=== PATIENT | male | born 1985 | race Caucasian/White ===

== ENCOUNTER 2022-09-21 20:20 | Emergency (ER) | payer BC ==
--- OUTSIDE RECORDS SUMMARY | 2022-09-21 20:23 | XMS REPORT | Continuity of Care Document ---
:1985 Author Organization [facility] t Address [address] [place] [address] [place] [id number] Care Team Providers Name Role Phone TRACY PORTER Attending Clinician Unavailable UMER AUSTIN Attending Clinician Unavailable Problems This patient has no known problems. Allergies, Adverse Reactions, Alerts This patient has no known allergies or adverse reactions. Medications This patient has no known medications. Procedures This patient has no known procedures. Encounters Start End Encounter Admission Attending Care Care Encounter Source Date/Time Date/Time Type Type Clinicians Facility Department ID 2022-09-15 2022-09-15 Emergency ER [facility] [id number] [place] 18:12:00 21:08:00 TRACY [id number] [facility] 2012-02-20 2012-02-20 Emergency ER [facility] [id number] [place] 16:14:00 23:38:00 UMER [id number] [facility] Results This patient has no known results.
[2022-09-21 22:36] LABS: Absolute Lymphocytes (CBC) 2.5 K/uL (0.7-4.9); Hematocrit 43.2 % (39.6-49.0); Lymphocytes % 27.5 % (15.3-44.8); MPV 8.4 fL (7.6-11.3); RBC Red Blood Cell Count 4.81 M/uL (4.33-5.43)
[2022-09-21 22:39] LABS: Protime INR 1.32
[2022-09-21] MEDS ORDERED: METOCLOPRAMIDE 10 MG/2mL INJ ONE (22:46)
[2022-09-21] MEDS ORDERED: NA CHLORIDE 0.9% 1,000 ML ONE (22:47)
[2022-09-21] MEDS ORDERED: KETOROLAC 30 MG/ML INJ ONE (22:47)
[2022-09-21] MEDS ORDERED: PANTOPRAZOLE 40 MG INJ ONE (22:47)
[2022-09-21] MEDS ORDERED: MAGNES/ALUMIN/SIMET 30ML UCUP ONE (22:48)
[2022-09-21] MEDS ORDERED: FAMOTIDINE 20 MG/2 ML VIAL IV ONE (22:48)
[2022-09-21 22:51] LABS: Albumin 4.1 g/dL (3.4-5.0); Bilirubin Direct 0.2 mg/dL (0-0.2); Bilirubin Indirect, Calculated 0.5 mg/dL (0.2-0.8); Bilirubin Total 0.7 mg/dL (0.2-1.0); Potassium 3.9 mEq/L (3.5-5.1); Protein, Total 8.5 g/dL (6.4-8.2)
--- NOTE | 2022-09-22 01:12 | EDPHYS ---
Physician Documentation [facility] Name: Jae Gee Age: 37 yrs Sex: Male : 1985 Arrival Date: 09/21/2022 Time: 20:20 Bed 17 Private MD: ED Physician Kevin Cordova HPI: 09/21 20:26 This 37 yrs old Male presents to ER via Unassigned with complaints of sp4 Difficulty Swallowing, Chest Pain, Neck and Upper Back Pain. 09/22 01:04 37-year-old male no significant past medical history except for asthma presents with sp4 postprandial discomfort in the chest, burning pain after meals, difficulty swallowing solid food, also burning after swallowing liquids. Patient reports he has not had this kind of problem before.. Historical: - Allergies: 09/21 20:36 No Known Allergies; kl - Home Meds: 20:36 None [Active]; kl - PMHx: 20:36 Asthma; kl - PSHx: 20:36 None; kl - Immunization history:: Adult Immunizations not immunized. - Social history:: Smoking status: Reported history of juuling and/or vaping. - Family history:: not pertinent. ROS: 09/22 01:04 Constitutional: Negative for fever, chills, and weight loss, Eyes: Negative for injury, sp4 pain, redness, and discharge, ENT: Negative for injury, pain, and discharge, Neck: Negative for injury, pain, and swelling, Cardiovascular: Negative for chest pain, palpitations, and edema, Respiratory: Negative for shortness of breath, cough, wheezing, and pleuritic chest pain, Abdomen/GI: Negative for abdominal pain, nausea, vomiting, diarrhea, and constipation, positive for chest wall burning after meal, difficulty swallowing solid foods Back: Negative for injury and pain, : Negative for injury, bleeding, discharge, and swelling, MS/Extremity: Negative for injury and deformity, Skin: Negative for injury, rash, and discoloration, Neuro: Negative for headache, weakness, numbness, tingling, and seizure, Psych: Negative for depression, anxiety, Allergy/Immunology: Negative for hives, rash, and allergies Endocrine: Negative for neck swelling, polydipsia, polyuria, polyphagia, and weight changes Hematologic/Lymphatic: Negative for swollen nodes, abnormal bleeding, and unusual bruising Exam: 01:04 Constitutional: This is a well developed, well nourished patient who is awake, alert, sp4 and in no acute distress. Head/Face: Normocephalic, atraumatic. Eyes: Pupils equal round and reactive to light, extra-ocular motions intact. Lids and lashes normal. Conjunctiva and sclera are not injected. Cornea within normal limits. Periorbital areas with no swelling, redness, or edema. ENT: Nares patent. No nasal discharge, no septal abnormalities noted. Tympanic membranes are normal and external auditory canals are clear. Oropharynx with no redness, swelling, or masses, exudates, or evidence of obstruction, uvula midline. Mucous membranes moist. Neck: Trachea midline, no thyromegaly or masses palpated, and no cervical lymphadenopathy. Supple, full range of motion without nuchal rigidity, or vertebral point tenderness. Chest/axilla: Normal chest wall appearance and motion. Nontender with no deformity. No lesions are appreciated. Cardiovascular: Regular rate and rhythm with a normal S1 and S2. No gallops, murmurs, or rubs. Normal PMI, no JVD. No pulse deficits. Respiratory: Lungs have equal breath sounds bilaterally, clear to auscultation and percussion. No rales, rhonchi or wheezes noted. No increased work of breathing, no retractions or nasal flaring. Abdomen/GI: Soft, non-tender, with normal bowel sounds. No distension or tympany. No guarding or rebound. No evidence of tenderness throughout. Back: No spinal tenderness. No costovertebral tenderness. Skin: Warm, dry with normal turgor. Normal color with no rashes, no lesions, and no evidence of cellulitis. MS/ Extremity: Pulses equal, no cyanosis. Neurovascular intact. Full, normal range of motion. Neuro: Awake and alert, GCS 15, oriented to person, place, time, and situation. Cranial nerves II-XII grossly intact. Motor strength 5/5 in all extremities. Sensory grossly intact. Psych: Awake, alert, with orientation to person, place and time. Behavior, mood, and affect are within normal limits Vital Signs: 09/21 20:33 BP 133 / 99; Pulse 81; Resp 18; Temp 97.9(TE); Pulse Ox 99% ; Weight 93.89 kg (R); kl Height 5 ft. 11 in. ; Pain 8/10; 09/22 01:00 BP 110 / 72; Pulse 52; Resp 16; Pulse Ox 99% on R/A; jb4 09/21 20:33 Body Mass Index 28.87 (93.89 kg, 180.34 cm) 09/21 20:33 Pain Scale: Adult kl MDM: 09/21 20:38 Patient medically screened. sp4 09/22 00:36 ED course: PROCEDURE: CT Chest, Abdomen and Pelvis With Intravenous Contrast CLINICAL sp4 INDICATION: The patient is 37 years old and is Male; mid chest pain , esophagitis [facility] MAIN TECHNIQUE: Axial computed tomography images of the chest, abdomen and pelvis with intravenous contrast. Sagittal and coronal reformatted images were created and reviewed. This CT exam was performed using one or more of the following dose reduction techniques: automated exposure control, adjustment of the mA and/or kV according to patient size, and/or use of iterative reconstruction technique. COMPARISON: No relevant prior studies available. FINDINGS: CHEST: LUNGS: Unremarkable. No mass. No consolidation. PLEURAL SPACE: Unremarkable. No significant effusion. No pneumothorax. HEART: Unremarkable. No cardiomegaly. No significant pericardial effusion. No significant coronary artery calcifications. MEDIASTINUM: Minimal soft tissue attenuation in the anterior mediastinum, most consistent with persistent thymus. The esophagus appears diffusely unremarkable by CT appearance. ABDOMEN: LIVER: Wedgelike area of hyperattenuation along the peripheral seventh hepatic segment, with internal focus of more intense hyperattenuation. GALLBLADDER AND BILE DUCTS: Unremarkable. No calcified stones. No ductal dilation. PANCREAS: Unremarkable. No ductal dilation. No mass. SPLEEN: Unremarkable. No splenomegaly. ADRENALS: Unremarkable. No mass. KIDNEYS AND URETERS: Unremarkable. No hydronephrosis. No solid mass. STOMACH AND BOWEL: Unremarkable. No obstruction. No mucosal thickening. PELVIS: APPENDIX: No findings to suggest acute appendicitis. BLADDER: Unremarkable. No mass. REPRODUCTIVE: Unremarkable as visualized. CHEST, ABDOMEN and PELVIS: INTRAPERITONEAL SPACE: Unremarkable. No significant fluid collection. No free air. BONES/JOINTS: Unremarkable. No acute fracture. No dislocation. SOFT TISSUES: Unremarkable. VASCULATURE: Unremarkable. No aortic aneurysm. LYMPH NODES: Unremarkable. No enlarged lymph nodes. IMPRESSION: 1. Wedgelike area of hyperattenuation along the peripheral seventh hepatic segment, with internal focus of more intense hyperattenuation. Recommend further characterization by nonemergent hepatic mass protocol MRI or CT. 2. No acute abnormality of the chest, abdomen, or pelvis. Specifically, the esophagus appears unremarkable by CT. Electronically signed by: Arnold Hedrick MD 09/21/2022 11:34 PM CDT . 01:04 Differential diagnosis: laryngitis, pharyngitis, tonsillitis. Data reviewed: vital sp4 signs, nurses notes, lab test result(s), radiologic studies, CT scan. ED course: By description patient's symptoms consistent with esophagitis. CT reveals no sign of thickened or inflamed esophagus, no sign of perforated esophageal ulcer, no sign of esophageal food bolus retention. Patient will be advised to see pulmonary fellow on outpatient basis for upper endoscopy, Pepcid and omeprazole daily, supplemented with Tums as needed. Also patient advised to consume clear liquid diet for the next 24 hours. Stay away from acidic and caustic foods. . 09/21 20:37 Order name: Basic Metabolic Panel; Complete Time: 00:34 sp4 09/21 20:37 Order name: CBC with Diff; Complete Time: 00:34 sp4 09/21 20:37 Order name: LFT's; Complete Time: 00:34 sp4 09/21 20:37 Order name: PT-INR; Complete Time: 00:34 sp4 09/21 23:37 Order name: CREATININE WHOLE BLOOD; Complete Time: 00:34 EDMS 09/21 20:37 Order name: CT Chest, Abdomen, Pelvis - W/Contrast 4 09/21 20:37 Order name: IV Saline Lock; Complete Time: 22:31 sp4 09/21 20:37 Order name: Labs collected and sent; Complete Time: 22:31 sp4 09/21 20:37 Order name: O2 Per Protocol; Complete Time: 22:20 sp4 09/21 20:37 Order name: O2 Sat Monitoring; Complete Time: 22:20 sp4 Administered Medications: 09/21 23:10 Drug: Famotidine IVP 20 mg Route: IVP; Site: right antecubital; 09/22 01:47 Follow up: Response: No adverse reaction; Marked relief of symptoms 09/21 23:10 Drug: Ketorolac IVP 30 mg Route: IVP; Site: right antecubital; 4 09/22 01:47 Follow up: Response: No adverse reaction; Marked relief of symptoms [facility] 09/21 23:10 Drug: NS 0.9% IV 1000 ml Route: IV; Rate: 1 bolus; Site: right antecubital; 4 09/22 00:15 Follow up: Response: No adverse reaction; Marked relief of symptoms; IV Status: jb4 Completed infusion; IV Intake: 1000ml 09/21 23:11 Drug: Pantoprazole IVP 40 mg Route: IVP; Site: right antecubital; 4 09/22 01:47 Follow up: Response: No adverse reaction; Marked relief of symptoms [facility] 09/21 23:11 Drug: Alum-Mag Hydroxide-Simeth PO Suspension (200 mg-200 mg-20 mg/5 mL) 30 ml Route: jb4 PO; 09/22 01:47 Follow up: Response: No adverse reaction; Marked relief of symptoms [facility] 09/21 23:11 Drug: metoCLOPramide IVP 20 mg {Note: ER physician okayed medication to be administered jb4 in IV bolus .} Route: IVP; Site: right antecubital; 09/22 01:48 Follow up: Response: No adverse reaction; Marked relief of symptoms jb4 Disposition Summary: 09/22/22 01:11 Discharge Ordered Location: Home sp4 Problem: new sp4 Symptoms: have improved sp4 Condition: Stable sp4 Diagnosis - Gastro-esophageal reflux disease with esophagitis sp4 Followup: sp4 - With: Blaise Damian MD - When: 7 - 10 days - Reason: Recheck today's complaints Discharge Instructions: - Discharge Summary Sheet sp4 - Gastroesophageal Reflux Disease, Adult sp4 Prescriptions: - omeprazole 40 mg Oral capsule,delayed release (e.c.) - take 1 capsule by ORAL route daily for 30 days; 30 capsule; Refills: 0, Product sp4 Selection Permitted - Pepcid 20 mg Oral Tablet - take 2 tablet by ORAL route once daily for 30 days; 60 tablet; Refills: 0, sp4 Product Selection Permitted Signatures: Dispatcher [employer] Stephanie Baker RN RN kl Bryson, James, RN RN jbKevin Kruse MD MD sp4
--- NOTE | 2022-09-22 01:12 | ER ---
Nurse's Notes [facility] Name: Jae Gee Age: 37 yrs Sex: Male : 1985 Arrival Date: 09/21/2022 Time: 20:20 Bed 17 Private MD: Diagnosis: Gastro-esophageal reflux disease with esophagitis Presentation: 09/21 20:33 Chief complaint: Patient states: chest pain and difficulty swallowing when trying to kl eat solid foods since Saturday. Coronavirus screen: Vaccine status: Patient reports being unvaccinated. Ebola Screen: Patient negative for fever greater than or equal to 101.5 degrees Fahrenheit, and additional compatible Ebola Virus Disease symptoms. Initial Sepsis Screen: Does the patient meet any 2 criteria? No. Patient's initial sepsis screen is negative. Does the patient have a suspected source of infection? No. Patient's initial sepsis screen is negative. Risk Assessment: Do you want to hurt yourself or someone else? Patient reports no desire to harm self or others. 20:33 Method Of Arrival: Ambulatory kl 20:33 Acuity: MAXWELL 3 kl Triage Assessment: 20:37 General: Appears uncomfortable, Behavior is calm, cooperative. Pain: Complains of pain kl in chest Aggravated by EATING. Cardiovascular: Denies diaphoresis, fatigue, lightheadedness, nausea, palpitations, shortness of breath, syncope, vomiting. Historical: - Allergies: 20:36 No Known Allergies; kl - Home Meds: 20:36 None [Active]; kl - PMHx: 20:36 Asthma; kl - PSHx: 20:36 None; kl - Immunization history:: Adult Immunizations not immunized. - Social history:: Smoking status: Reported history of juuling and/or vaping. - Family history:: not pertinent. Screenin/24 01:00 [facility] ED Fall Risk Assessment (Adult) History of falling in the last 3 months, jb4 including since admission No falls in past 3 months (0 pts) Confusion or Disorientation No (0 pts) Score/Fall Risk Level 0 - 2 = Low Risk Oriented to surroundings, Maintained a safe environment. Abuse screen: Denies threats or abuse. Nutritional screening: No deficits noted. Tuberculosis screening: No symptoms or risk factors identified. Assessment: 09/21 22:30 General: Appears in no apparent distress. comfortable, Behavior is calm, cooperative, jb4 appropriate for age. Pain: Complains of pain in chest and abdomen Pain does not radiate. Pain currently is 8 out of 10 on a pain scale. Neuro: Level of Consciousness is awake, alert, obeys commands, Oriented to person, place, time, situation. Cardiovascular: Patient's skin is warm and dry. Respiratory: Airway is patent Respiratory effort is even, unlabored, Respiratory pattern is regular, symmetrical. GI: Reports upper abdominal pain, nausea. : No signs and/or symptoms were reported regarding the genitourinary system. EENT: No signs and/or symptoms were reported regarding the EENT system. Derm: Skin is intact, Skin is pink, warm \T\ dry. Musculoskeletal: Circulation, motion, and sensation intact. Range of motion: intact in all extremities. 09/22 00:00 Reassessment: Patient appears in no apparent distress at this time. Patient and/or jb4 family updated on plan of care and expected duration. Pain level reassessed. Patient is alert, oriented x 3, equal unlabored respirations, skin warm/dry/pink. 01:46 Reassessment: Patient appears in no apparent distress at this time. Patient and/or jb4 family updated on plan of care and expected duration. Pain level reassessed. Patient is alert, oriented x 3, equal unlabored respirations, skin warm/dry/pink. Vital Signs: 09/21 20:33 BP 133 / 99; Pulse 81; Resp 18; Temp 97.9(TE); Pulse Ox 99% ; Weight 93.89 kg (R); kl Height 5 ft. 11 in. ; Pain 8/10; 09/22 01:00 BP 110 / 72; Pulse 52; Resp 16; Pulse Ox 99% on R/A; jb4 09/21 20:33 Body Mass Index 28.87 (93.89 kg, 180.34 cm) 09/21 20:33 Pain Scale: Adult ED Course: 09/21 20:24 Patient arrived in ED. jj6 20:26 Kevin Cordova MD is Attending Physician. sp4 20:36 Triage completed. kl 20:39 Radiology exam delayed due to lab results not completed at this time. (BUN/Creatinine) jg10 IV insertion attempt and/or patient not having appropriate IV at this time. 22:31 PT-INR Sent. jb4 22:31 LFT's Sent. jb4 22:31 CBC with Diff Sent. jb4 22:31 Basic Metabolic Panel Sent. jb4 22:58 CT Chest, Abdomen, Pelvis - W/Contrast In Process Unspecified. EDMS 22:58 Geremias Benedict, RN is Primary Nurse. 4 09/22 01:00 No provider procedures requiring assistance completed. IV discontinued, intact, jb4 bleeding controlled, No redness/swelling at site. Pressure dressing applied. Patient maintains SpO2 saturation greater than 95% on room air. 01:00 Patient has correct armband on for positive identification. Client placed on continuous jb4 cardiac and pulse oximetry monitoring. NIBP monitoring applied. 01:11 Blaise Damian MD is Referral Physician. sp4 Administered Medications: 09/21 23:10 Drug: Famotidine IVP 20 mg Route: IVP; Site: right antecubital; [facility] 09/22 01:47 Follow up: Response: No adverse reaction; Marked relief of symptoms [facility] 09/21 23:10 Drug: Ketorolac IVP 30 mg Route: IVP; Site: right antecubital; [facility] 09/22 01:47 Follow up: Response: No adverse reaction; Marked relief of symptoms [facility] 09/21 23:10 Drug: NS 0.9% IV 1000 ml Route: IV; Rate: 1 bolus; Site: right antecubital; [facility] 09/22 00:15 Follow up: Response: No adverse reaction; Marked relief of symptoms; IV Status: jb4 Completed infusion; IV Intake: 1000ml 09/21 23:11 Drug: Pantoprazole IVP 40 mg Route: IVP; Site: right antecubital; [facility] 09/22 01:47 Follow up: Response: No adverse reaction; Marked relief of symptoms [facility] 09/21 23:11 Drug: Alum-Mag Hydroxide-Simeth PO Suspension (200 mg-200 mg-20 mg/5 mL) 30 ml Route: jb4 PO; 09/22 01:47 Follow up: Response: No adverse reaction; Marked relief of symptoms [facility] 09/21 23:11 Drug: metoCLOPramide IVP 20 mg {Note: ER physician okayed medication to be administered jb4 in IV bolus .} Route: IVP; Site: right antecubital; 09/22 01:48 Follow up: Response: No adverse reaction; Marked relief of symptoms jb4 Intake: 00:15 IV: 1000ml; Total: 1000ml. jb4 Outcome: 01:11 Discharge ordered by . sp4 01:47 Discharged to home ambulatory, with family. jb4 01:47 Condition: stable 01:47 Discharge instructions given to patient, family, Instructed on discharge instructions, follow up and referral plans. medication usage, Demonstrated understanding of instructions, follow-up care, medications, Prescriptions given X 2. 01:48 Patient left the ED. jb4 Signatures: Dispatcher [employer] EDMS Stephanie Jameson RN RN Geremias Mars RN RN jb4 Ria Sanford6 Jayne Ness0 Kevin Cordova MD MD sp4
[2022-09-22 01:53] VITALS: TEMP 97.9; O2SAT 99
[2022-09-22 01:55] VITALS: BP 110/72
--- NOTE | 2022-09-22 21:44 | RAD REPORT ---
EXAM DESCRIPTION: CT - Chest Abdomen Pelvis W Cont - 09/22/2022 6:20 am CLINICAL HISTORY: The patient is 37 years old and is Male; mid chest pain , esophagitis [facility] MA IN TECHNIQUE: Axial computed tomography images of the chest, abdomen and pelvis with intravenous contra st. Sagittal and coronal reformatted images were created and reviewed. This CT exam was performed using one or more of the following dose reduction techniques: automated exposure control, adjustme nt of the mA and/or kV according to patient size, and/or use of iterative reconstruction technique. COMPARISON: No relevant prior studies available. FINDINGS: CHEST: LUNGS: Unremarkable. No mass. No consolidation. PLEURAL SPACE: Unremarkable. No significant effusion. No pneumothorax. HEART: Unremarkable. No cardiomegaly. No significant pericardial effusion. No significant cor onary artery calcifications. MEDIASTINUM: Minimal soft tissue attenuation in the anterior mediastinum, most consistent with pers istent thymus. The esophagus appears diffusely unremarkable by CT appearance. ABDOMEN: LIVER: Wedgelike area of hyperattenuation along the peripheral seventh hepatic segment, with auditor internal al focus of more intense hyperattenuation. GALLBLADDER AND BILE DUCTS: Unremarkable. No calcified stones. No ductal dilation. PANCREAS: Unremarkable. No ductal dilation. No mass. SPLEEN: Unremarkable. No splenomegaly. ADRENALS: Unremarkable. No mass. KIDNEYS AND URETERS: Unremarkable. No hydronephrosis. No solid mass. STOMACH AND BOWEL: Unremarkable. No obstruction. No mucosal thickening. PELVIS: APPENDIX: No findings to suggest acute appendicitis. BLADDER: Unremarkable. No mass. REPRODUCTIVE: Unremarkable as visualized. CHEST, ABDOMEN and PELVIS: INTRAPERITONEAL SPACE: Unremarkable. No significant fluid collection. No free air. BONES/JOINTS: Unremarkable. No acute fracture. No dislocation. SOFT TISSUES: Unremarkable. VASCULATURE: Unremarkable. No aortic aneurysm. LYMPH NODES: Unremarkable. No enlarged lymph nodes. IMPRESSION: 1. Wedgelike area of hyperattenuation along the peripheral seventh hepatic segment, wi th internal focus of more intense hyperattenuation. Recommend further characterization by nonemerge nt hepatic mass protocol MRI or CT. 2. No acute abnormality of the chest, abdomen, or pelvis. Specifically, the esophagus appears unrem arkable by CT. Electronically signed by: Arnold Hedrick MD 09/21/2022 11:34 PM CDT Due to temporary technical issues with the PACS/Fluency reporting system, reports are being signed by the in house radiologists without review as a courtesy to insure prompt reporting. The interpreting radiologist is fully responsible for the content of the report.
== END 2022-09-22 01:48 | disposition home or self-care (01) ==
LOC: ER 20:20
DX: K21.00 Gastro-esophageal reflux disease with esophagitis, without bleeding (principal)
CPT/HCPCS: 96361; 85025; 80048; 36415; 85610; 82565; 80076; 71260; 74177; 96375; 96374; 99285; Q9967; J2765; C9113; J7030